=== PATIENT | male | born 1940 | race Caucasian/White ===

== ENCOUNTER → 2018-05-23 | Outpatient (CLI) | payer MEDICARE ==
[~2018-05-23] MED LIST: ASPI-1197 PO; CETI10CA5 PO; FURO20TA4 PO; GLUC-172 PO; IBUP-14 PO; OMEGA Q PO; OMEP20CA10 PO; PRAV20TA4 PO; RANO500T3 PO; THEO400T3 PO; TRAM-355 PO; UMEC1DIS IH; isosorbide PO; metoprolol PO; vitamin b complex PO; vitamin c PO
== END | disposition home or self-care (01) ==
LOC: RAH 12:35
PROVIDERS: ATTEND Physical Medicine & Rehabilitation
DX: M50.123 Cervical disc disorder at C6-C7 level with radiculopathy (principal); M25.78 Osteophyte, vertebrae; M48.02 Spinal stenosis, cervical region
CPT/HCPCS: 72141

== ENCOUNTER → 2018-05-29 | Outpatient (CLI) | payer MEDICARE | END | disposition home or self-care (01) | LOC: RAH 09:58 | PROVIDERS: ATTEND Physical Medicine & Rehabilitation | DX: M19.011 Primary osteoarthritis, right shoulder (principal) | CPT/HCPCS: 73030 ==

== ENCOUNTER → 2019-03-10 | Outpatient (CLI) | payer MEDICARE ==
[~2019-03-10] MED LIST changes: +OMEP-298 PO; -OMEP20CA10 PO
== END | disposition home or self-care (01) ==
LOC: RAH 13:17
PROVIDERS: ATTEND Physical Medicine & Rehabilitation
DX: M47.26 Other spondylosis with radiculopathy, lumbar region (principal)
CPT/HCPCS: 72110

== ENCOUNTER → 2019-06-22 | Outpatient (CLI) | payer MEDICARE ==
[~2019-06-22] MED LIST changes: -OMEP-298 PO; +OMEP20CA12 PO
== END | disposition home or self-care (01) ==
LOC: RAH 11:13
PROVIDERS: ATTEND Physical Medicine & Rehabilitation
DX: M47.27 Other spondylosis with radiculopathy, lumbosacral region (principal); M48.07 Spinal stenosis, lumbosacral region; M51.17 Intervertebral disc disorders with radiculopathy, lumbosacral region
CPT/HCPCS: 72148

== ENCOUNTER → 2019-12-31 | Outpatient (CLI) | payer MEDICARE ==
[~2019-12-31] MED LIST changes: +IOHEXOL-350 75 ML VIAL IV ONE
== END | disposition home or self-care (01) ==
LOC: RAH 09:27
PROVIDERS: ATTEND Family Medicine
DX: R10.12 Left upper quadrant pain (principal); J98.11 Atelectasis; M47.816 Spondylosis without myelopathy or radiculopathy, lumbar region; I70.90 Unspecified atherosclerosis
CPT/HCPCS: 74160; Q9967

== ENCOUNTER → 2020-07-01 | Outpatient (CLI) | payer MEDICARE ==
[~2020-07-01] MED LIST changes: -IOHEXOL-350 75 ML VIAL IV ONE
== END | disposition home or self-care (01) ==
LOC: RAH 12:40
PROVIDERS: ATTEND Physical Medicine & Rehabilitation
DX: M47.814 Spondylosis without myelopathy or radiculopathy, thoracic region (principal)
CPT/HCPCS: 72146

== ENCOUNTER → 2022-07-25 | Outpatient (CLI) | payer MEDICARE, OTHER | END | disposition home or self-care (01) | LOC: RAH 11:15 | PROVIDERS: ATTEND Physical Medicine & Rehabilitation | DX: M79.604 Pain in right leg (principal); M79.89 Other specified soft tissue disorders | CPT/HCPCS: 93971 ==

== ENCOUNTER → 2022-09-12 | Outpatient (CLI) | payer MEDICARE, OTHER | END | disposition home or self-care (01) | LOC: RAH 11:52 | PROVIDERS: ATTEND Physical Medicine & Rehabilitation | DX: M43.16 Spondylolisthesis, lumbar region (principal); M48.07 Spinal stenosis, lumbosacral region; M25.78 Osteophyte, vertebrae | CPT/HCPCS: 72114 ==

== ENCOUNTER → 2023-01-21 | Outpatient (CLI) | payer MEDICARE, OTHER | END | disposition home or self-care (01) | LOC: RAH 08:59 | PROVIDERS: ATTEND Family Medicine | DX: K76.0 Fatty (change of) liver, not elsewhere classified (principal); R79.89 Other specified abnormal findings of blood chemistry; K80.20 Calculus of gallbladder without cholecystitis without obstruction | CPT/HCPCS: 76700 ==

== ENCOUNTER → 2023-03-15 | Outpatient (CLI) | payer MEDICARE, OTHER | END | disposition home or self-care (01) | LOC: RAH 13:18 | PROVIDERS: ATTEND Physical Medicine & Rehabilitation | DX: M48.061 Spinal stenosis, lumbar region without neurogenic claudication (principal); M47.26 Other spondylosis with radiculopathy, lumbar region; M48.07 Spinal stenosis, lumbosacral region | CPT/HCPCS: 72148 ==

== ENCOUNTER 2024-02-06 06:18 | Day surgery (SDC) | payer MEDICARE, OTHER ==
[~2024-02-06] VITALS: Ht 188 cm; Wt 102.1 kg
[2024-02-06] VITALS (10 sets, daily range): BP systolic 120–139; BP diastolic 55–64; PULSE 56–65; RESP 15–18; TEMP 97.3–99
[~2024-02-06 06:18] MED LIST changes: -CETI10CA5 PO; -FURO20TA4 PO; -GLUC-172 PO; -IBUP-14 PO; +METO-408 PO; -OMEGA Q PO; -OMEP20CA12 PO; -PRAV20TA4 PO; +PRAV40TA3 PO; -RANO500T3 PO; -THEO400T3 PO; -TRAM-355 PO; -UMEC1DIS IH; +[UNRECOGNIZED DRUG - CODE] TP; -isosorbide PO; -metoprolol PO; -vitamin b complex PO; -vitamin c PO
[2024-02-06] MEDS: 0.9%NACL 1000ML 1,000 ML IV ONE (07:59)
[2024-02-06] MEDS ORDERED: proPOFol 10 MG/ML 20ML VIAL IV ONE (09:27)
== END 2024-02-06 10:40 | disposition home or self-care (01) ==
LOC: ENDO 06:18 → DAH 06:18 → ENDO 10:40
PROVIDERS: ATTEND Internal Medicine Gastroenterology
DX: K52.9 Noninfective gastroenteritis and colitis, unspecified (principal); D12.3 Benign neoplasm of transverse colon; I10 Essential (primary) hypertension; I25.10 Atherosclerotic heart disease of native coronary artery without angina pectoris; M19.90 Unspecified osteoarthritis, unspecified site; E78.5 Hyperlipidemia, unspecified; Z95.1 Presence of aortocoronary bypass graft; Z98.49 Cataract extraction status, unspecified eye; Z86.0100 Personal history of colon polyps, unspecified; Z79.899 Other long term (current) drug therapy
CPT/HCPCS: 45385; 45380; J7030 ×2; J2704; A4620; A4215 ×2; A4223; A4657; A4222; A4221; A4663; A4606; J3490

== ENCOUNTER → 2024-07-30 | Outpatient (CLI) | payer MEDICARE, OTHER ==
--- NOTE | 2024-07-30 13:30 | NUR ---
MBSS COMPLETED (OUTPATIENT). No aspirations/no penetrations. Recommend regular solids, thin liquids and pills whole with liquids as tolerated. Compensatory strategies: 1. sit upright during oral intake 2. extra dry swallows DIAGNOSTIC FINDINGS: Oropharyngeal swallowing is within functional limits. No penetrations or aspiration observed. Pt with mild pharyngeal and above UES residue cleared with re-swallows. Occasional throat clears present during oral intake not indicating penetrations or aspirations. Exam was negative for etiology of patients c/o globus sensation/choking with oral intake. MAY WANT TO CONSULT GI MD TO FURTHER EVALUATE ESOPHAGEAL FUNCTION VIA UPPER GI SERIES. All questions answered. Addendum: 07/30/[address] [facility]ABIO HAMMONDS Amended: Links added.
--- NOTE | 2024-07-30 17:35 | HMCIMG ---
MODIFIED BARIUM SWALLOW W CINE REASON: DYSPHAGIA, FEEDING DIFFICULTIES. COMPARISON: None TECHNIQUE: Modified barium swallow study was performed with referring speech therapist. FINDINGS: Please see procedure report by referring speech therapist. IMPRESSION: Modified barium swallow study.
== END | disposition home or self-care (01) ==
LOC: RAH 13:43
PROVIDERS: ATTEND Internal Medicine Gastroenterology
DX: R13.10 Dysphagia, unspecified (principal); R63.30 Feeding difficulties, unspecified
CPT/HCPCS: 74230; 92611

== ENCOUNTER → 2024-12-24 | Outpatient (CLI) | payer MEDICARE, OTHER ==
[~2024-12-24] MED LIST changes: -PRAV40TA3 PO; +PRAV40TA62 PO
--- NOTE | 2024-12-24 16:00 | HMCIMG ---
KNEE 3VWS RT REASON: RIGHT KNEE OA/MYOPATHY TECHNIQUE: 3 views were obtained. FINDINGS: There is no evidence of fracture or dislocation. There is no joint effusion. The soft tissues appear unremarkable. There is no evidence of a radiopaque foreign body. There is osteopenia of the osseous structure. There is atherosclerotic change of the popliteal artery and trifurcation vessels with calcified plaque. IMPRESSION: No acute findings. 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
== END | disposition home or self-care (01) ==
LOC: RAH 14:26
PROVIDERS: ATTEND Physical Medicine & Rehabilitation
DX: I70.201 Unspecified atherosclerosis of native arteries of extremities, right leg (principal); M85.88 Other specified disorders of bone density and structure, other site; M17.11 Unilateral primary osteoarthritis, right knee; M25.561 Pain in right knee; R29.6 Repeated falls; G72.9 Myopathy, unspecified
CPT/HCPCS: 73562